=== PATIENT | female | born 1995 | race Caucasian/White ===

== ENCOUNTER 2016-09-04 15:59 | Emergency (ER) | payer OTHER, SELFPAY ==
[2016-09-04] MEDS ORDERED: valACYclovir HCL 500 MG TAB As Ordered ONE (17:11)
--- NOTE | 2016-09-04 17:22 | EDDOCDS ---
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 Adult mlb1 Sepsis Screening: The patient does not have new or worsening altered mentation. Patient's respiratory rate is less than 22. Systolic blood pressure is greater than 100. Patient has a qSOFA score of 0- Negative Sepsis Screen. Suicide/Homicide risk assessment- the patient denies having any suicidal and/or homicidal ideations and does not present with any other emotional, behavioral or mental health complaints. Status: The patient is a dependent. Transition of care: patient was not received from another setting of care. 16:04 Acuity: JEFFREY Level 3 mlb1 16:04 Method Of Arrival: Walkin/Carried/Asstd mlb1 Triage Assessment: 16:05 General: Appears in no apparent distress, Behavior is appropriate for age, cooperative. mlb1 Pain: Location: groin Pain currently is 10 out of 10 on a pain scale. Pt requests HIV screening. 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 Control Implant - PMHx: none; - PSHx: none; - Social history: Smoking status: Patient uses tobacco products, heavy tobacco smoker. No barriers to communication noted, The patient speaks fluent Nigerien, Speaks appropriately for age. - Family history: Not pertinent. - : The pt / caregiver states he / she is not on anticoagulants. Home medication list is obtained from the patient. - Exposure Risk Screening:: None identified. Screenin:14 Screening information is obtained from the patient. Fall risk: No risks identified. ck1 Assistance ADL's: requires no assistance with activities of daily living. Abuse/DV Screen: The patient / caregiver reports he/she is: not in a situation that causes fear, pain or injury. Nutritional screening: No deficits noted. Advance Directives: Currently, there is no health care proxy. home support is adequate. Assessment: 17:14 General: Appears distressed, uncomfortable, Behavior is appropriate for age, ck1 cooperative. Pain: Location: groin Pain currently is 10 out of 10 on a pain scale. Neurological: Level of Consciousness is awake, alert, obeys commands, Oriented to person, place, time. Respiratory: Respiratory effort is unlabored, Respiratory pattern is regular, symmetrical. : Lesions noted. Derm: Skin is pink, warm & dry. Vital Signs: 16:00 BP 145 / 88; Pulse 70; Resp 18; Temp 97.0; Pulse Ox 99% ; Weight 58.97 kg; Height 5 ft. elp 4 in. (162.56 cm); 16:00 Body Mass Index 22.31 (58.97 kg, 162.56 cm) elp Vitals: 16:00 Log In Time: September 04, 2016 at 15:58. elp 16:39 HIV Screen Result: Negative. rs3 ED Course: 16:00 Patient visited by Ivelisse Mtz PCA. elp 16:00 Other - Complete Info On Cds is Private Physician. elp 16:00 Patient visited by Ivelisse Mtz PCA. elp 16:00 Patient moved to Waiting elp 16:00 Patient moved to Pre RCE elp 16:04 Patient visited by Devang Roca RN. mlb1 16:05 Triage Initiated mlb1 16:07 Patient visited by Devang Roca RN. mlb1 16:16 Patient moved to Triage 3 ck1 16:45 [facility] Bailey [facility]. mo1 16:45 Oscar Cuevas MD is Attending Physician. mo1 16:48 Patient visited by Alba Dykes RN. ck1 16:57 Patient visited by Devang Bailey PA. mo1 17:14 The patient / caregiver is instructed regarding the plan of care and ED course. ck1 17:14 No IV's were initiated during this patient's visit. No procedures done that require ck1 assistance. 17:20 Patient moved to TR7 ck1 Administered Medications: 17:21 Drug: valACYclovir 1000 mg [valacyclovir 500 mg tablet (2 tabs)] Route: PO; rs3 Point of Care Testing: Urine : 17:04 hCG Reading: Negative; Control Reading: Positive; jp4 Ranges: Order Results: There are currently no results for this order. Outcome: 17:07 Discharge ordered by Provider. mo1 17:14 Discharge Assessment: Patient awake, alert and oriented x 3. No cognitive and/or ck1 functional deficits noted. Patient verbalized understanding of disposition instructions. patient administered narcotics - no. The following High Risk Discharge criteria are identified: None. Discharged to home ambulatory. Condition: stable. Discharge instructions given to patient. No special radiology studies were completed. Property :Personal belongings accompany Pt. 17:15 Instructed on discharge instructions, follow up and referral plans. medication usage, ck1 safe sex practices, Demonstrated understanding of instructions, medications, Pt was receptive of discharge instructions/ teaching. Prescriptions given X 1. 17:21 Patient left the ED. rs3 Signatures: Devang Roca RN RN mlb1 Alba DykesRN RN ck1 Rhonda AlejandroRN RN rs3 Devang Bailey PA PA mo1 Patchen, Ivelisse, FURNACE INSTALLER HELPER FURNACE INSTALLER HELPER elp Pigradhae, Bud jp4 Corrections: (The following items were deleted from the chart) 16:07 16:05 Home Meds: none; mlb1 mlb1 MTDD
--- NOTE | 2016-09-04 17:22 | EDDOCDS ---
Physician Documentation [facility] Name: Terell Vaughan Age: 20 yrs Sex: Female : 1995 Arrival Date: 09/04/2016 Time: 15:59 Bed TR7 Private MD: Other - Complete Info On Cds Disposition: 09/04/16 17:07 Discharged to Home/Self Care. 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 - Condition is Stable. - Discharge Instructions: Genital Herpes. - Prescriptions for Valtrex 1 g Oral Tablet - take 1 tablet by ORAL route every 12 hours for 10 days; 20 tablet. - Medication Reconciliation, Local Pharmacy Hours form. - Follow up: Private Physician; When: Call to arrange an appointment; Reason: Recheck today's complaints, Continuance of care. - Problem is new. - Symptoms are unchanged. Historical: - Allergies: no known allergies; - Home Meds: 1. Control Implant - PMHx: none; - PSHx: none; - Social history: Smoking status: Patient uses tobacco products, heavy tobacco smoker. No barriers to communication noted, The patient speaks fluent Belizean, Speaks appropriately for age. - Family history: Not pertinent. - : The pt / caregiver states he / she is not on anticoagulants. Home medication list is obtained from the patient. - Exposure Risk Screening:: None identified. 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 4 in. (162.56 cm); 16:00 Body Mass Index 22.31 (58.97 kg, 162.56 cm) elp MDM: 16:06 HIV Screen, Nursing ordered. mlb1 16:56 UCG by Nursing ordered. mo1 17:06 valACYclovir 1000 mg PO once ordered. mo1 Point of Care Testing: Urine : 17:04 hCG Reading: Negative; Control Reading: Positive; jp4 Ranges: Administered Medications: 17:21 Drug: valACYclovir 1000 mg [valacyclovir 500 mg tablet (2 tabs)] Route: PO; rs3 Signatures: Devang Roca RN RN mlb1 Alba DykesRN RN ck1 Rhonda Alejandro RN RN rs3 Devang Bailey PA PA mo1 The chart was reviewed and I authenticate all verbal orders and agree with the evaluation and treatment provided.Corrections: (The following items were deleted from the chart) 16:07 16:05 Home Meds: none; mlb1 mlb1 MTDD
--- NOTE | 2016-09-06 18:23 | EDDOCDS ---
Nurse's Notes [facility] Name: Terell Vaughan Age: 20 yrs Sex: Female : 1995 Arrival Date: 09/04/2016 Time: 15:59 Bed TR7 Private MD: Other - Complete Info On Cds Diagnosis: Herpesviral infection of genitalia and urogenital tract Presentation: 09/04 16:04 Presenting complaint: Patient states: Painful rash to groin began 5 days ago. Adult mlb1 Sepsis Screening: The patient does not have new or worsening altered mentation. Patient's respiratory rate is less than 22. Systolic blood pressure is greater than 100. Patient has a qSOFA score of 0- Negative Sepsis Screen. Suicide/Homicide risk assessment- the patient denies having any suicidal and/or homicidal ideations and does not present with any other emotional, behavioral or mental health complaints. Status: The patient is a dependent. Transition of care: patient was not received from another setting of care. 16:04 Acuity: JEFFREY Level 3 mlb1 16:04 Method Of Arrival: Walkin/Carried/Asstd mlb1 Triage Assessment: 16:05 General: Appears in no apparent distress, Behavior is appropriate for age, cooperative. mlb1 Pain: Location: groin Pain currently is 10 out of 10 on a pain scale. Pt requests HIV screening. 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 Control Implant - PMHx: none; - PSHx: none; - Social history: Smoking status: Patient uses tobacco products, heavy tobacco smoker. No barriers to communication noted, The patient speaks fluent Honduran, Speaks appropriately for age. - Family history: Not pertinent. - : The pt / caregiver states he / she is not on anticoagulants. Home medication list is obtained from the patient. - Exposure Risk Screening:: None identified. Screenin:14 Screening information is obtained from the patient. Fall risk: No risks identified. ck1 Assistance ADL's: requires no assistance with activities of daily living. Abuse/DV Screen: The patient / caregiver reports he/she is: not in a situation that causes fear, pain or injury. Nutritional screening: No deficits noted. Advance Directives: Currently, there is no health care proxy. home support is adequate. Assessment: 17:14 General: Appears distressed, uncomfortable, Behavior is appropriate for age, ck1 cooperative. Pain: Location: groin Pain currently is 10 out of 10 on a pain scale. Neurological: Level of Consciousness is awake, alert, obeys commands, Oriented to person, place, time. Respiratory: Respiratory effort is unlabored, Respiratory pattern is regular, symmetrical. : Lesions noted. Derm: Skin is pink, warm & dry. Vital Signs: 16:00 BP 145 / 88; Pulse 70; Resp 18; Temp 97.0; Pulse Ox 99% ; Weight 58.97 kg; Height 5 ft. elp 4 in. (162.56 cm); 16:00 Body Mass Index 22.31 (58.97 kg, 162.56 cm) elp Vitals: 16:00 Log In Time: September 04, 2016 at 15:58. elp 16:39 HIV Screen Result: Negative. rs3 ED Course: 16:00 Patient visited by Ivelisse Mtz PCA. elp 16:00 Other - Complete Info On Cds is Private Physician. elp 16:00 Patient visited by Ivelisse Mtz PCA. elp 16:00 Patient moved to Waiting elp 16:00 Patient moved to Pre RCE elp 16:04 Patient visited by Devang Roca RN. mlb1 16:05 Triage Initiated mlb1 16:07 Patient visited by Devang Roca RN. mlb1 16:16 Patient moved to Triage 3 ck1 16:45 [facility] mo1 16:45 Oscar Cuevas MD is Attending Physician. mo1 16:48 Patient visited by Alba Dykes RN. ck1 16:57 Patient visited by Devang Bailey PA. mo1 17:14 The patient / caregiver is instructed regarding the plan of care and ED course. ck1 17:14 No IV's were initiated during this patient's visit. No procedures done that require ck1 assistance. 17:20 Patient moved to TR7 ck1 17:40 Patient name changed from Clarrissa\S\\S\Clement\S\ to Clarrissa\S\ \S\Clement. EDMS 17:42 [place] [place] Agreement was scanned into [employer] and attached to record. zo 18:39 [place] Payment Agreement was scanned into [employer] and attached to record. ks16 21:38 T-Sheet-- Draft Copy was scanned into [employer] and attached to record. klr Administered Medications: 17:21 Drug: valACYclovir 1000 mg [valacyclovir 500 mg tablet (2 tabs)] Route: PO; rs3 Point of Care Testing: Urine : 17:04 hCG Reading: Negative; Control Reading: Positive; jp4 Ranges: Order Results: There are currently no results for this order. Outcome: 17:07 Discharge ordered by Provider. mo1 17:14 Discharge Assessment: Patient awake, alert and oriented x 3. No cognitive and/or ck1 functional deficits noted. Patient verbalized understanding of disposition instructions. patient administered narcotics - no. The following High Risk Discharge criteria are identified: None. Discharged to home ambulatory. Condition: stable. Discharge instructions given to patient. No special radiology studies were completed. Property :Personal belongings accompany Pt. 17:15 Instructed on discharge instructions, follow up and referral plans. medication usage, ck1 safe sex practices, Demonstrated understanding of instructions, medications, Pt was receptive of discharge instructions/ teaching. Prescriptions given X 1. 17:21 Patient left the ED. rs3 Signatures: Dispatcher [employer] EDMS Devang Roca RN RN mlb1 Alba Dykes RN RN ck1 Robert Ovalle Rosemary, RN RN rs3 Devang Bailey PA PA mo1 Patchen, Ivelisse, VP RESEARCH VP RESEARCH elp Pignone, Bud jp4 Digna Mayo, Reg Reg ks16 Sury Arambula klr Corrections: (The following items were deleted from the chart) 16:07 16:05 Home Meds: none; mlb1 mlb1 Chart Complete MTDD
--- NOTE | 2016-09-06 18:23 | EDDOCDS ---
Physician Documentation [facility] Name: Terell Vaughan Age: 20 yrs Sex: Female : 1995 Arrival Date: 09/04/2016 Time: 15:59 Bed TR7 Private MD: Other - Complete Info On Cds Disposition: 09/04/16 17:07 Discharged to Home/Self Care. 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 - Condition is Stable. - Discharge Instructions: Genital Herpes. - Prescriptions for Valtrex 1 g Oral Tablet - take 1 tablet by ORAL route every 12 hours for 10 days; 20 tablet. - Medication Reconciliation, Local Pharmacy Hours form. - Follow up: Private Physician; When: Call to arrange an appointment; Reason: Recheck today's complaints, Continuance of care. - Problem is new. - Symptoms are unchanged. Historical: - Allergies: no known allergies; - Home Meds: 1. Control Implant - PMHx: none; - PSHx: none; - Social history: Smoking status: Patient uses tobacco products, heavy tobacco smoker. No barriers to communication noted, The patient speaks fluent [place] Islander, Speaks appropriately for age. - Family history: Not pertinent. - : The pt / caregiver states he / she is not on anticoagulants. Home medication list is obtained from the patient. - Exposure Risk Screening:: None identified. 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 4 in. (162.56 cm); 16:00 Body Mass Index 22.31 (58.97 kg, 162.56 cm) elp MDM: 16:06 HIV Screen, Nursing ordered. mlb1 16:56 UCG by Nursing ordered. mo1 17:06 valACYclovir 1000 mg PO once ordered. mo1 17:42 Financial registration complete. zo 17:42 [place] Payment Agreement was scanned into [employer] and attached to record. zo 18:39 [place] Payment Agreement was scanned into [employer] and attached to record. ks16 21:38 T-Sheet-- Draft Copy was scanned into [employer] and attached to record. klr Point of Care Testing: Urine : 17:04 hCG Reading: Negative; Control Reading: Positive; jp4 Ranges: Administered Medications: 17:21 Drug: valACYclovir 1000 mg [valacyclovir 500 mg tablet (2 tabs)] Route: PO; rs3 Signatures: Devang Roca RN RN mlb1 Alba Dykes RN RN ck1 Robert Ovalle Rosemary, RN RN rs3 Devang Bailey PA PA mo1 Digna Mayo, Reg Reg ks16 Sury Arambula The chart was reviewed and I authenticate all verbal orders and agree with the evaluation and treatment provided.Corrections: (The following items were deleted from the chart) 16:07 16:05 Home Meds: none; melvi mlb1 Attachments: 17:42 [place] Payment Agreement zo 18:39 [place] Payment Agreement ks16 21:38 T-Sheet-- Draft Copy klr Chart Complete MTDD
--- NOTE | 2016-09-06 18:23 | EDDOCDS ---
Physician Documentation [facility] Name: Terell Vaughan Age: 20 yrs Sex: Female : 1995 Arrival Date: 09/04/2016 Time: 15:59 Bed TR7 Private MD: Other - Complete Info On Cds Disposition: 09/04/16 17:07 Discharged to Home/Self Care. 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 - Condition is Stable. - Discharge Instructions: Genital Herpes. - Prescriptions for Valtrex 1 g Oral Tablet - take 1 tablet by ORAL route every 12 hours for 10 days; 20 tablet. - Medication Reconciliation, Local Pharmacy Hours form. - Follow up: Private Physician; When: Call to arrange an appointment; Reason: Recheck today's complaints, Continuance of care. - Problem is new. - Symptoms are unchanged. Historical: - Allergies: no known allergies; - Home Meds: 1. Control Implant - PMHx: none; - PSHx: none; - Social history: Smoking status: Patient uses tobacco products, heavy tobacco smoker. No barriers to communication noted, The patient speaks fluent [place] Islander, Speaks appropriately for age. - Family history: Not pertinent. - : The pt / caregiver states he / she is not on anticoagulants. Home medication list is obtained from the patient. - Exposure Risk Screening:: None identified. 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 4 in. (162.56 cm); 16:00 Body Mass Index 22.31 (58.97 kg, 162.56 cm) elp MDM: 16:06 HIV Screen, Nursing ordered. mlb1 16:56 UCG by Nursing ordered. mo1 17:06 valACYclovir 1000 mg PO once ordered. mo1 17:42 Financial registration complete. zo 17:42 [place] [place] was scanned into [employer] and attached to record. zo 18:39 [place] Payment Agreement was scanned into [employer] and attached to record. ks16 21:38 T-Sheet-- Draft Copy was scanned into [employer] and attached to record. klr Point of Care Testing: Urine : 17:04 hCG Reading: Negative; Control Reading: Positive; jp4 Ranges: Administered Medications: 17:21 Drug: valACYclovir 1000 mg [valacyclovir 500 mg tablet (2 tabs)] Route: PO; rs3 Signatures: Devang Roca RN RN mlb1 Alba Dykes RN RN ck1 Robert Ovalle Rosemary, RN RN rs3 Devang Bailey PA PA mo1 Digna Mayo, Reg Reg ks16 Sury Arambula The chart was reviewed and I authenticate all verbal orders and agree with the evaluation and treatment provided.Corrections: (The following items were deleted from the chart) 16:07 16:05 Home Meds: none; melvi mlb1 Attachments: 17:42 [place] Payment Agreement zo 18:39 [place] Payment Agreement ks16 21:38 T-Sheet-- Draft Copy klr Chart Complete MTDD
== END 2016-09-04 17:21 | disposition home or self-care (01) ==
LOC: M ED 15:59
DX: A60.00 Herpesviral infection of urogenital system, unspecified (principal); R30.0 Dysuria; R10.2 Pelvic and perineal pain; F17.210 Nicotine dependence, cigarettes, uncomplicated; Z79.3 Long term (current) use of hormonal contraceptives

== ENCOUNTER 2016-11-10 15:02 | Emergency (ER) | payer OTHER, SELFPAY ==
[~2016-11-10] VITALS: Ht 162.6 cm; Wt 59.0 kg
[2016-11-10] MEDS ORDERED: MAGIC MOUTHWASH SUSPENSION BTL SSP ONE (15:45)
[2016-11-10 16:09] VITALS: BP 114/76
== END 2016-11-10 16:15 | disposition home or self-care (01) ==
LOC: M ED 15:41
DX: J02.9 Acute pharyngitis, unspecified (principal)